=== PATIENT | female | born 1990 | race Two or more races ===

== ENCOUNTER 2018-08-05 22:33 | Emergency (ER) | payer SELFPAY ==
[2018-08-05 22:38] VITALS: BP 136/92
--- NOTE | 2018-08-05 22:39 | EDPHY ---
H & P Stated Complaint: L buttock mass Source: Patient Exam Limitations: No limitations - Personal History LMP (Females 10-55): 22-28 Days Ago Current Tetanus/Diphtheria Vaccine: Yes Current Tetanus Diphtheria and Acellular Pertussis (TDAP): Yes - Medical/Surgical History Hx Asthma: No Hx Chronic Respiratory Disease: No Hx Diabetes: No Hx Cardiac Disease: No Hx Renal Disease: No Hx Cirrhosis: No Hx Alcoholism: No Hx HIV/AIDS: No Hx Splenectomy or Spleen Trauma: No - Social History Smoking Status: Never smoked Time Seen by Provider: 08/05/18 22:38 HPI/ROS: HPI: This is a 27-year-old female who presents with Chief Complaint: Left buttock mass Location: Left buttock Quality: Mass Duration: 24-48 hours Signs and Symptoms: No bleeding, no radiation, no numbness, no weakness, no tingling, no incontinence, no decreased range of motion, + swelling, + pain, no fever Timing: Worsening Severity: Moderate Context: Patient presents with a left buttock miles that has been present for the last 24-48 hours that has become extremely painful while she was at work at the [employer]. She takes past frequently. She does wear jeans and tight pants to work. No history of diabetes mellitus, MRSA infection. LMP 2-3 weeks ago. Modifying Factors: None Comment: ROS: A comprehensive 10 system review of systems is otherwise negative aside from elements mentioned in the history of present illness. MEDICAL/SURGICAL/SOCIAL HISTORY: Medical history: Generally healthy. Does not take any regular medications. Surgical history: Denies Social history: Employed at [employer]. CONSTITUTIONAL: Extremely polite and cooperative, nontoxic-appearing, adult female, awake and alert, no obvious distress HEENT: Atraumatic and normocephalic. NECK: supple RECTAL: Left gluteal cleft shows 4 in annular abscess. no external hemorrhoids , no fissures, no palpable masses, guaiac negative EXTREMITIES: 2/2 pulses, strength 5/5, DIP/PIP/MCP flexion/extension intact with good light touch sensation. no deformities, no clubbing, no cyanosis or edema. NEUROLOGICAL: no focal neuro deficits. GCS 15. Light touch sensation intact. SKIN: Warm and dry, no erythema. no rash. Good capillary refill. (KennethCeline quiñones) Constitutional: Initial Vital Signs Temperature (C) 36.9 C 08/05/18 22:36 Heart Rate 107 H 08/05/18 22:36 Respiratory Rate 16 08/05/18 22:36 Blood Pressure 136/92 H 08/05/18 22:36 O2 Sat (%) 95 08/05/18 22:36 O2 Delivery Mode Room Air Allergies/Adverse Reactions: No Known Allergies Allergy (Unverified 05/24/12 18:24) Home Medications: Medication Instructions Recorded Miscellaneous Medical Supply [NO 1 ea MISC AD 05/24/12 HOME MEDS] Cephalexin [Keflex (*)] 500 mg PO TID #21 cap 08/05/18 Sulfamethox/Tmp 800/160 mg 1 tab PO BID #14 tab 08/05/18 [Bactrim Ds] Medical Decision Making Procedures: Procedure: Abscess drainage. The patient's abscess was located on the left gluteal fold. I obtained verbal consent from the patient to drain the abscess who was informed about the possibility of bleeding and pain. Local anesthesia was provided with 10 mL of 1 % lidocaine with epinephrine. The abscess was incised with#11 scalpel and a 10 mL amount of purulent drainage was expressed. I irrigated the wound and placed some packing. The patient tolerated the procedure well. The procedure was performed by myself. (Celine Cooper) ED Course/Re-evaluation: Vital signs reviewed and stable. No systemic signs. Tetanus is current. No rectal or vaginal involvement. Local anesthesia provided and abscess I&D Packing placed and then clean sterile dressing applied Given Keflex and Bactrim prepack and prescription for same Verbal and written wound care instructions provided. This patient was seen under the supervision of my secondary supervising physician. I evaluated care for this patient independently. Discussed this patient with Dr. Lao. (Celine Cooper) PHYSICIAN DOCUMENTATION: The patient was evaluated and managed by the [facility] [employer]. My co- signature indicates that I have reviewed this chart and I agree with the findings and plan of care as documented. I am the secondary supervising physician. (Theresa Lao) Differential Diagnosis: Differential diagnosis includes but is not limited to rectal abscess, groin abscess, Bartholin cyst, anal fissure. (Celine Cooper) - Data Points Medications Given: Discontinued Medications Cephalexin (Keflex 500 Mg Prepack#4) [facility] Reason: Protocol Stop: 08/05/18 23:24 Last Admin: 08/05/18 23:34 Dose: 1 btl Trimethoprim/Sulfamethoxazole (Bactrim Ds Prepack#2) 1 btl [facility] Stop: 08/05/18 23:24 Last Admin: 08/05/18 23:34 Dose: 1 btl Departure - Departure Disposition: Home, Routine, Self-Care Clinical Impression: Abscess, gluteal, left Condition: Good Instructions: Cephalexin (By mouth), Sulfamethoxazole/Trimethoprim (By mouth), Abscess Follow-up (ED), Abscess Incision and Drainage (DC), Warm Compress or Soak (ED) Additional Instructions: Keep the dressing dry and in place for 48 hours. After 48 hours, you may remove the dressing and packing; wash the site daily with antibacterial soap and water; then pat dry. Apply clean sterile dressing until fully healed. Take Tylenol 650 mg every 4 hours and/or Ibuprofen 600 mg every 8 hours with food as needed for pain. Take antibiotics as directed until complete. Do not skip a dose. Do not wear tight-fitting pants. Return to the ER immediately if you experience redness, red streaks, have fevers /chills, flu like symptoms, limited range of motion, or any other symptoms that concern you. Referrals: [facility],. [Clinic] - As per Instructions Stand Alone Forms: Work Excuse Prescriptions: Cephalexin [Keflex (*)] 500 mg PO TID #21 cap Sulfamethox/Tmp 800/160 mg [Bactrim Ds] 1 tab PO BID #14 tab
[2018-08-05] MEDS ORDERED: CEPHALEXIN 500MG PREPACK#4 BTL TAKEHOME ONE (23:23)
[2018-08-05] MEDS ORDERED: SULFAMET/TMP DS PREPACK#2 BTL TAKEHOME ONE (23:23)
== END 2018-08-05 23:42 | disposition home or self-care (01) ==
PROC: 0H98XZZ Drainage of Buttock Skin, External Approach (ICD-10-PCS; principal; 2018-08-05)
DX: L03.317 Cellulitis of buttock (principal)

== ENCOUNTER 2018-08-07 11:17 | Emergency (ER) | payer SELFPAY ==
[2018-08-07 11:23] VITALS: BP 110/76
--- NOTE | 2018-08-07 11:45 | EDPHY ---
H & P Stated Complaint: ITCHY POST TAKING ABX Time Seen by Provider: 08/07/18 11:44 HPI/ROS: HPI: This is a 27-year-old female who presents with Chief Complaint: ITCHY POST TAKING ABX Location: Body Quality: Itching Duration: Started today Signs and Symptoms: no fever, no nausea, no vomiting, no diarrhea, no urinary symptoms, no chest pain, no shortness of breath, no wheezing, no cough, no sore throat, no neck stiffness, no joint pain, no swollen glands, no ear pain Timing: Gradual onset Severity: Mild Context: Patient was seen in this emergency room by this provider on 2017 for left buttock abscess. Incision and drainage performed, packing placed , and placed on Keflex and Bactrim. Patient reports that the abscess is improving. Today she woke up with itchiness on her skin, especially on her arms. She denies any wheezing, difficulty speaking, itchy scratchy throat, nausea, vomiting. Modifying Factors: No peqw-van-ikjwzex medications tried Comment: ROS: A comprehensive 10 system review of systems is otherwise negative aside from elements mentioned in the history of present illness. MEDICAL/SURGICAL/SOCIAL HISTORY: Medical history: Generally healthy. Does not take any regular medications. Surgical history: Denies Social history: Employed at [email or web address]. Family history noncontributory. CONSTITUTIONAL: Extremely polite and cooperative female, awake and alert, no obvious distress HEENT: Atraumatic and normocephalic, PERRL, EOMI. Nares patent; no rhinorrhea; no nasal mucosal edema. Tympanic membranes clear. Oropharynx clear, no exudate and moist pink mucosa. Airway patent. No lymphadenopathy. No meningismus. Cardiovascular: Normal S1/S2, regular rate, regular rhythm, without murmur rub or gallop. PULMONARY/CHEST: Symmetrical and nontender. Clear to auscultation bilaterally. Good air movement. No accessory muscle usage. ABDOMEN: Soft, nondistended, nontender, no rebound, no guarding, no peritoneal signs, no masses or organomegaly. No CVAT. EXTREMITIES: 2/2 pulses, strength 5/5, no deformities, no clubbing, no cyanosis or edema. NEUROLOGICAL: no focal neuro deficits. GCS 15. SKIN: Warm and dry, no erythema. no rash. Several excoriations from scratching noted on bilateral forearms-no active bleeding. Good capillary refill. Source: Patient Exam Limitations: No limitations - Personal History LMP (Females 10-55): 22-28 Days Ago Current Tetanus Diphtheria and Acellular Pertussis (TDAP): Yes - Medical/Surgical History Hx Asthma: No Hx Chronic Respiratory Disease: No Hx Diabetes: No Hx Cardiac Disease: No Hx Renal Disease: No Hx Cirrhosis: No Hx Alcoholism: No Hx HIV/AIDS: No Hx Splenectomy or Spleen Trauma: No Other PMH: ABCESS - Social History Smoking Status: Never smoked Constitutional: Initial Vital Signs Temperature (C) 36.8 C 08/07/18 11:21 Heart Rate 78 08/07/18 11:21 Respiratory Rate 17 08/07/18 11:21 Blood Pressure 110/76 08/07/18 11:21 O2 Sat (%) 95 08/07/18 11:21 O2 Delivery Mode Room Air Allergies/Adverse Reactions: No Known Allergies Allergy (Verified 08/07/18 11:21) Home Medications: Medication Instructions Recorded Cephalexin [Keflex (*)] 500 mg PO TID #21 cap 08/05/18 Sulfamethox/Tmp 800/160 mg 1 tab PO BID #14 tab 08/05/18 [Bactrim Ds] Medical Decision Making ED Course/Re-evaluation: Vital signs reviewed and stable upon arrival. No signs of anaphylaxis/airway compromise/angioedema Given Benadryl 50 mg. Suspect sulfa drug allergy. This patient was seen under the supervision of my secondary supervising physician. I evaluated care for this patient independently. Discussed this patient with Dr. Kirby. Differential Diagnosis: Differential diagnosis includes but is not limited to adverse drug reaction, allergic dermatitis, contact dermatitis, pruritus, anaphylaxis, toxic shock syndrome. Departure - Departure Disposition: Home, Routine, Self-Care Clinical Impression: Allergic drug rash due to sulfonamide Condition: Good Instructions: Acute Rash (ED), Adverse Drug Reaction (ED) Additional Instructions: Stop taking the Bactrim as this is the most likely culprit of your rash. Continue to take Keflex as directed. Take Benadryl 25-50 mg as needed every 4-6 hours for rash, itching, allergies. Consume a minimum of 8-10 glasses of water or electrolyte fluid replacement drinks that include Gatorade, Powerade, Pedialyte. Return at once for any worsening symptoms or concerns. Referrals: [facility],. [Clinic] - As per Instructions
[2018-08-07] MEDS ORDERED: diphenhydrAMINE 25 MG CAP PO ONE (11:57)
== END 2018-08-07 12:03 | disposition home or self-care (01) ==
DX: T78.40XA Allergy, unspecified, initial encounter (principal); Z88.2 Allergy status to sulfonamides